=== PATIENT | female | born 1975 | race Two or more races ===

== ENCOUNTER 2022-05-26 09:40 | Emergency (ER) | payer BC, MEDICAID ==
[~2022-05-26] VITALS: Ht 157.5 cm; Wt 77.0 kg
[2022-05-26 10:35] LABS: Urine Bacteria FEW /hpf (None Seen); Urine Blood TRACE /uL (Negative); Urine Specific Gravity 1.003 (1.001-1.035); Urine WBC 1 /hpf (0 - 5)
[2022-05-26 10:58] LABS: Basophils # (auto) 0.1 10 ^3/uL (0-0.2); Basophils % (auto) 0.7 % (0.0-2.0); Eosinophils # (auto) 0.1 10 ^3/uL (0-0.8); Eosinophils % (auto) 1.3 % (0.0-7.0); Hematocrit 46.4 % (36.0-46.0); Hemoglobin 15.6 g/dL (12.2-16.2); Lymphocytes # (auto) 1.5 10 ^3/uL (0.4-5.4); Lymphocytes % (auto) 17.9 % (10.0-50.0); Mean Corpuscular Hemoglobin 31.4 pg (28.0-32.0); Mean Corpuscular Hgb Conc. 33.6 g/dL (32.0-36.0); Mean Corpuscular Volume 93.5 fL (80.0-100.0); Monocytes # (auto) 0.5 10 ^3/uL (0-1.3); Monocytes % (auto) 5.6 % (0.0-12.0); Neutrophils # (auto) 6.3 10 ^3/uL (1.6-8.6); Neutrophils % (auto) 74.5 % (37.0-80.0); Red Blood Cells 4.97 10^6/uL (4.0-5.20); Red Cell Distribution Width 13.1 % (11.8-14.3); White Blood Cell 8.4 10^3/uL (4.4-10.8)
[2022-05-26 11:08] LABS: Potassium 3.8 mmol/L (3.5-5.1)
[2022-05-26 11:15] LABS: BUN/Creatinine Ratio 9.4; Bilirubin, Total 0.5 mg/dL (0.2-1.0); Calcium 9.2 mg/dL (8.5-10.1); Total Protein 7.8 g/dL (6.4-8.2)
[2022-05-26 14:08] VITALS: BP 121/68
== END 2022-05-26 14:12 | disposition home or self-care (01) ==
LOC: ER 09:40
DX: N83.201 Unspecified ovarian cyst, right side (principal); N83.202 Unspecified ovarian cyst, left side; Z90.710 Acquired absence of both cervix and uterus
CPT/HCPCS: 36415; 76705; 76856; 80053; 81001; 85025

== ENCOUNTER 2022-09-08 17:17 | Emergency (ER) | payer BC, MEDICAID ==
[~2022-09-08] VITALS: Ht 157.5 cm; Wt 73.0 kg
[2022-09-08 19:03] VITALS: BP 125/77
[2022-09-08] MEDS ORDERED: methylPREDNISolone SOD SUCC 125 MG/2 ML VL IM ONE (20:15)
[2022-09-08] MEDS ORDERED: KETOROLAC TROMETH 30 MG/ML 1ML VIAL IM ONE (20:15)
[2022-09-08] MEDS ORDERED: CYCL-837 PO (20:20)
[2022-09-08] MEDS ORDERED: DICL-163 PO (20:20)
== END 2022-09-08 21:53 | disposition home or self-care (01) ==
LOC: ER 17:17
DX: M54.16 Radiculopathy, lumbar region (principal); M47.896 Other spondylosis, lumbar region; Z90.710 Acquired absence of both cervix and uterus
CPT/HCPCS: 96372; 99284; J1885; J2930

== ENCOUNTER 2023-08-26 14:31 | Emergency (ER) | payer BC, MEDICAID ==
[~2023-08-26] VITALS: Ht 157.5 cm; Wt 77.2 kg
[~2023-08-26 14:31] MED LIST: CYCL-837 PO; DICL-163 PO
[2023-08-26 15:14] LABS: Basophils # (auto) 0.1 10 ^3/uL (0-0.2); Basophils % (auto) 0.6 % (0.0-2.0); Eosinophils # (auto) 0.2 10 ^3/uL (0-0.8); Hemoglobin 15.5 g/dL (12.2-16.2); Lymphocytes % (auto) 30.5 % (10.0-50.0); Mean Corpuscular Hemoglobin 30.4 pg (28.0-32.0); Mean Corpuscular Hgb Conc. 34.5 g/dL (32.0-36.0); Mean Corpuscular Volume 88.2 fL (80.0-100.0); Monocytes # (auto) 0.7 10 ^3/uL (0-1.3); Monocytes % (auto) 6.6 % (0.0-12.0); Neutrophils % (auto) 60.3 % (37.0-80.0); Nucleated Red Blood Cells % 0.2 %; Red Cell Distribution Width 13.9 % (11.8-14.3); White Blood Cell 9.9 10^3/uL (4.4-10.8)
[2023-08-26 15:22] LABS: INR 0.94 (0.9-1.15); Partial Thromboplastin Time < 20.0 SEC (24.5-34.5); Prothrombin Time 9.9 sec (9.3-11.8)
[2023-08-26 15:26] LABS: Alanine Aminotransferase 53 U/L (7-40); Albumin 4.8 g/dL (3.2-4.8); Alkaline Phosphatase 83 U/L (46-116); Anion Gap 7 (5-15); Aspartate Aminotransferase 31 U/L (13-40); BUN/Creatinine Ratio 12.5 (10.0-20.0); Blood Urea Nitrogen 14 mg/dL (9-23); Calcium 9.7 mg/dL (8.7-10.4); Carbon Dioxide 24 mmol/L (20-30); Chloride 108 mmol/L (98-107); Glucose 84 mg/dL (74-106); Magnesium 1.9 mg/dL (1.6-2.6); Potassium 4.2 mmol/L (3.5-5.1); Sodium 139 mmol/L (136-145)
[2023-08-26 15:27] LABS: Bilirubin, Total 0.6 mg/dL (0.2-1.0); Total Protein 7.5 g/dL (5.7-8.2)
[2023-08-26] MEDS ORDERED: IBUP-1455 PO (16:45)
[2023-08-26 16:55] VITALS: BP 144/73; PULSE 100; RESP 16; TEMP 98.3; O2SAT 98
== END 2023-08-26 16:57 | disposition home or self-care (01) ==
LOC: EDBD 14:31 → ER 14:31
DX: M94.0 Chondrocostal junction syndrome [Tietze] (principal); Z98.890 Other specified postprocedural states; Z79.899 Other long term (current) drug therapy
CPT/HCPCS: 36415; 71045; 80053; 83735; 83880; 84484; 85025; 85610; 85730

== ENCOUNTER 2023-12-24 08:48 | Emergency (ER) | payer BC, MEDICAID ==
[~2023-12-24] VITALS: Ht 157.5 cm; Wt 83.6 kg
[~2023-12-24 08:48] MED LIST changes: -DICL-163 PO; +DICL50TA5 PO; +IBUP-1455 PO
[2023-12-24 09:32] VITALS: BP 138/90; PULSE 96; RESP 18; TEMP 98.2; O2SAT 100
[2023-12-24 10:02] LABS: Urine Bacteria FEW /hpf (None Seen); Urine Blood 1+ /uL (Negative); Urine Clarity Clear (Clear); Urine Mucus FEW (None Seen); Urine Protein, UAD Negative (Negative); Urine Specific Gravity 1.009 (1.001-1.035); Urine Urobilinogen Normal (Negative); Urine WBC 9 /hpf (0 - 5)
[2023-12-24] MEDS: KETOROLAC TROMETH 60MG/2ML VIAL IM ONE (10:03)
[2023-12-24 10:05] LABS: Urine Color Yellow (Yellow)
[2023-12-24] MEDS ORDERED: PRED20TA2 PO (10:21)
[2023-12-24] MEDS ORDERED: TRAM-626 PO (10:21)
== END 2023-12-24 10:27 | disposition home or self-care (01) ==
LOC: ER 08:48
DX: S16.1XXA Strain of muscle, fascia and tendon at neck level, initial encounter (principal); M54.12 Radiculopathy, cervical region; M51.36 Other intervertebral disc degeneration, lumbar region; M54.16 Radiculopathy, lumbar region; G89.29 Other chronic pain; M54.50 Low back pain, unspecified; Z90.710 Acquired absence of both cervix and uterus; Z79.1 Long term (current) use of non-steroidal anti-inflammatories (NSAID); Z79.899 Other long term (current) drug therapy; X58.XXXA Exposure to other specified factors, initial encounter; Y93.89 Activity, other specified; Y92.89 Other specified places as the place of occurrence of the external cause; Y99.8 Other external cause status
CPT/HCPCS: 72040; 72100; 81001; 96372; 99284; J1885